=== PATIENT | male | born 1965 | race Caucasian/White ===

== ENCOUNTER → 2018-10-15 | Day surgery (SDC) | payer OTHER ==
--- NOTE | 2018-09-10 08:51 | HP ---
DATE OF ADMISSION: 10/15/2018 HISTORY: This is a 53-year-old man who presents for a laparoscopic repair right inguinal hernia with mesh with exploration of left and possible left laparoscopic repair as well. Recently, the patient has developed a rather painful mass at the level of the right groin. After being seen by his physician's, he was diagnosed with a hernia and advised repair. No underlying GI, , or respiratory complaints to suggest predisposition to hernia formation. PAST MEDICAL HISTORY: Nil. No history of hypertension, diabetes, respiratory, renal, or hepatic insufficiency. PAST SURGICAL HISTORY: Significant for appendectomy 4 years ago. ALLERGIES: None known. MEDICATIONS: Paxil 20 mg daily. SOCIAL HISTORY: Negative tobacco. Positive alcohol 1 glass of wine daily. FAMILY HISTORY: Essentially nil. REVIEW OF SYSTEMS: Nil. PHYSICAL EXAMINATION: Abdomen/Groin: Patient quite anxious and tense during his exam. With the patient examined in both the erect and supine positions, there is an obvious [id number] right inguinal hernia noted on palpation. It is difficult to examine the patient as he is quite tense and continues to bear down during the exam, which makes it difficult to ascertain whether the hernia is reducible. He feels that it is reducible at times, although that cannot be reproduced here in the office given his level of anxiety. Examination of the left groin reveals attenuation with no obvious herniation. Genitourinary: Testes unremarkable. IMPRESSION: Right inguinal hernia, reducible as per patient history. Unreducible here in the office secondary to the patient's inability to relax. Attenuation of the left groin cannot rule out a left inguinal hernia. PLAN: We will re-examine the patient once again on his scheduled surgery date in the next couple of weeks. The hernia will need to be reducible in order to proceed laparoscopically. If not, he understands he will require an open surgery. At the time of laparoscopic surgery, the site will be evaluated, and if there is a suggestion of a hernia on the other side, he will undergo bilateral repair. If he requires an open procedure either because his hernia cannot be reduced or if the preperitoneal space cannot be created, he understands he will undergo an open right inguinal repair with mesh. Indications, alternatives, and possible complications reviewed. Issues that surround the mesh, which include, but are not limited to, infection, rejection, migration and neuritides have been reviewed. Consent obtained. The patient was seen preoperatively by Dr. John Hills. Please refer to his notes for those medical details. CARLTON DENNIS M.D. PATRICIA/[id number] MTDD
[2018-09-30 10:45] VITALS: BMI 24.3
--- NOTE | 2018-10-14 13:06 | HP ---
UPDATED HISTORY AND PHYSICAL DATE OF ADMISSION: 10/15/2018 HISTORY: Since the previously dictated document, there has been no significant change in the patient's general medical condition. This is a 53-year-old man who presents for a laparoscopic right inguinal hernia repair with exploration as well as possible left repair. PAST MEDICAL HISTORY: Essentially nil. No history of hypertension, heart disease, diabetes, respiratory or hepatic insufficiency. PAST SURGICAL HISTORY: Appendectomy 4 years ago. ALLERGIES: None known. REGULAR MEDICATIONS: Paxil only. SOCIAL HISTORY: Negative tobacco. Positive glass of wine daily. FAMILY HISTORY AND REVIEW OF SYSTEMS: Nil. PHYSICAL EXAMINATION: Abdomen: [id number] right inguinal hernia which intermittently incarcerated. IMPRESSION: Right inguinal hernia/rule out left inguinal hernia. PLAN: If the hernia is reducible at the time of surgery, we will proceed with laparoscopic right with exploration as well as possible left repair. If the hernia is not reducible at the time of surgery, will need to consider open repair with mesh. CARLTON DENNIS M.D. [id number]
[~2018-10-15] MED LIST: BUPIVACAINE HCL/PF (5 MG/ML) 30 ML VIAL IJ ONE; DEXAMETHASONE SOD PHOSPHATE 4 MG/1 ML VIAL ONE; DEXAMETHASONE SOD PHOSPHATE/PF 10 MG/ML SDV ONE; KETOROLAC TROMETHAMINE 30 MG/1 ML VIAL ONE; LACTATED RINGERS SOLUTION 1,000 ML IV SCH; MIDAZOLAM HCL 2 MG/2 ML SINGLE DOSE VIAL ONE; NEOSTIGMINE METHYLSULFATE 0.5 MG/ML - 10 ML MDV ONE; ONDANSETRON 4 MG/2 ML VIAL ONE; PROPOFOL 20 ML ONE; ROCURONIUM BROMIDE 50 MG/5 ML VIAL ONE; TAMSULOSIN HCL 0.4 MG CAP ONE; ceFAZolin SODIUM 1 GM VIAL ONE; fentaNYL CITRATE 250 MCG/5 ML VIAL ONE; oxyCODONE HCL 5 MG TABLET PO PRN
[2018-10-15] MEDS: ONDANSETRON 4 MG/2 ML VIAL IVPUSH PRN ×2 (15:02→16:35)
[2018-10-15 18:52] VITALS: TEMP 98.2
[2018-10-15 19:54] VITALS: BP 113/77; PULSE 95
--- NOTE | 2018-10-16 07:26 | OP ---
DATE OF OPERATION: PREOPERATIVE DIAGNOSIS: Incarcerated right inguinal hernia / suspect left inguinal hernia. POSTOPERATIVE DIAGNOSIS: Incarcerated indirect right inguinal hernia / indirect left inguinal hernia. PROCEDURE: Bilateral laparoscopic inguinal hernia repair with mesh. OPERATING SURGEON: Michael Gusman MD GENERAL PRODUCTION MANAGER: Bert Calabrese MD ANESTHESIA: Jt Costa MD (general) HISTORY: This is a 53-year-old man who presented with an incarcerated right inguinal hernia which could not be reduced in the office or preoperatively here at the hospital. Patient presents for laparoscopic inguinal hernia repair. Indications, alternatives, and possible complications were reviewed. Consent obtained. DESCRIPTION OF PROCEDURE: With the patient in the supine position and after general anesthesia, the lower abdomen was prepped and draped in sterile fashion using chlorhexidine. Under general anesthesia, with significant manipulation, the incarcerated right component was reduced. A small incision was made just beneath the umbilicus and off to the right of the midline. The subcutaneous tissues were . The anterior rectus sheath was identified on the right side and incised. The rectus muscle fibers were retracted laterally in both directions exposing the preperitoneal space. The dissecting balloon was advanced in the preperitoneal space towards the pubis. The balloon was insufflated, creating the dissection. The balloon was removed leaving the structural collar in place. The preperitoneal space was insufflated to an adequate pressure and volume using CO2 gas. The camera lens was passed through this port, and the preperitoneal space visualized. Under direct vision, an 11-mm port was placed in the midline midway between the umbilicus and the pubis. The operating instruments were passed through this port. Exploration of the preperitoneal space allowed recognition of the anatomy. On the right side, there was a large indirect component that had been incarcerated. There was also attenuation of the direct space, but with no obvious direct hernia. There was no right femoral hernia. On the left side, there was an obvious smaller indirect left inguinal hernia, again with attenuation of the direct space. There was no left femoral component noted. First directing our attention to the right side, the large indirect component was reduced with skeletonization of the cord. The right side was repaired using a piece of 4 x 6 inch Versatex mesh. The mesh was keyholed and placed in the preperitoneal space. It was stacked in place with counter palpation and AbsorbaTack. The mesh was tacked anteriorly to the anterior abdominal wall. The mesh was tacked superiorly to the ileopubic tract. The mesh was tacked inferiorly to Coopers ligament and the pubic tubercle. The keyhole leaf was wrapped around the cord and tacked in place buttressing the internal ring. Now, directing our attention to the left side, the smaller indirect component was reduced with skeletonization of the cord. The left side was repaired with the same mesh and technique as described above for the right. After completion of the repair, the mesh was noted to overlap in the midline. Adequate hemostasis was noted. The lower midline port was removed under direct vision. No bleeding identified. Ultimately, the camera lens and structural port at the infraumbilical region were removed, and the gas was allowed to escape from the preperitoneal space. The fascia at each of the port sites was closed with interrupted 0 Vicryl sutures. Both skin wounds were closed using subcuticular 4-0 Biosyn sutures. NEEDLE AND INSTRUMENT COUNT: Correct. ESTIMATED BLOOD LOSS: Minimal. SPECIMENS: None. DRAINS: None. Doug [id number] MTDD
== END | disposition home or self-care (01) ==
LOC: FASU 08:36 → EDSTATUS 12:00
PROVIDERS: ATTEND Surgery
PROC: 0YUA4JZ Supplement Bilateral Inguinal Region with Synthetic Substitute, Percutaneous Endoscopic Approach (ICD-10-PCS; principal; 2018-10-15 13:00)
DX: K40.30 Unilateral inguinal hernia, with obstruction, without gangrene, not specified as recurrent (principal); K40.90 Unilateral inguinal hernia, without obstruction or gangrene, not specified as recurrent
CPT/HCPCS: 94760

== ENCOUNTER 2024-09-29 05:14 | Emergency (ER) | payer OTHER ==
[2024-09-29 05:19] VITALS: BP 121/92; PULSE 68; RESP 18; TEMP 98.2; BMI 25.0
[2024-09-29] MEDS ORDERED: TETRACAINE 0.5% OPHTH SOLN 2 ML BOTTLE ONE (05:20)
[2024-09-29] MEDS ORDERED: FLUORESCEIN NA 1 EA STRIP ONE (05:20)
[2024-09-29] MEDS ORDERED: CIPROFLOXACIN 0.3% EYE DROPS 5 ML BOTTLE ONE (05:35)
== END 2024-09-29 05:45 | disposition home or self-care (01) ==
LOC: FER 05:14
DX: S05.02XA Injury of conjunctiva and corneal abrasion without foreign body, left eye, initial encounter (principal); X58.XXXA Exposure to other specified factors, initial encounter
CPT/HCPCS: 99283-25